=== PATIENT | female | born 1990 | race Two or more races ===

== ENCOUNTER 2024-04-18 06:59 | Emergency (ER) | payer MEDICAID, SELFPAY ==
[2024-04-18 06:59] VITALS: BMI 29.2
[2024-04-18 07:07] VITALS: BP 128/80; PULSE 69; RESP 19; TEMP 36.6; O2SAT 100
--- NOTE | 2024-04-18 07:08 | XR_ITS ---
Examination: Lumbar spine 3 views Technique one AP lateral coned lateral lower lumbar spine 3 views Exam date and time: April 18, 2024 0838 hrs. Indications: Lifting injury to lower back today, neck pain Findings: Adequate alignment lumbar vertebral bodies Transitional L5 vertebral body No spondylolisthesis No cortical bone destruction Impression: No lumbar fracture
--- NOTE | 2024-04-18 07:09 | PD.EDBACK ---
ED Back Injury Pain RME/HPI General Chief Complaint: Back Pain/Injury Stated Complaint: lower back pain Time Seen by Provider: 04/18/24 07:07 Source: patient Arrival date/time: 04/18/24 06:59 33-year-old female with no known medical history presents to the emergency room with a chief complaint of lower back pain x 1 day. Patient states she was in the gym and she was squatting and felt a popping sound to her lower back. Mode of arrival: ambulatory Limitations: no limitations Related Data Home Medications ?Medication ?Instructions ?Recorded ?Confirmed sertraline 50 mg tablet 50 mg PO DAILY 03/26/21 05/21/21 Previous Rx's ?Medication ?Instructions ?Recorded ibuprofen 800 mg tablet 800 mg PO TID PRN pain #30 tabs 01/10/22 ibuprofen 600 mg tablet 600 mg PO Q8H PRN fever or pain 04/18/24 #20 tabs Allergies Allergy/AdvReac Type Severity Reaction Status Date / Time No Known Allergies Allergy Verified 05/22/21 09:51 Review of Systems Review of Systems Systems Reviewed: All systems reviewed, normal except as documented Constitutional Constitutional: Reports system reviewed and no additional complaints, except as documented, Denies fatigue, Denies fever(s), Denies headache(s) and Denies weakness Eyes Eyes: Reports system reviewed and no additional complaints, except as documented, Denies blurry vision and Denies change in vision ENT Ears, Nose, Mouth, and Throat: Reports system reviewed and no additional complaints, except as documented, Denies otalgia, Denies headache(s), Denies nasal congestion, Denies throat swelling and Denies vertigo Cardiovascular Cardiovascular: Reports system reviewed and no additional complaints, except as documented, Denies chest pain, Denies dyspnea and Denies dyspnea on exertion Respiratory Respiratory: Reports system reviewed and no additional complaints, except as documented, Denies chest congestion, Denies cough, Denies dyspnea, Denies dyspnea on exertion and Denies wheezing Gastrointestinal Gastrointestinal: Reports system reviewed and no additional complaints, except as documented, Denies abdominal pain, Denies cramping, Denies nausea and Denies vomiting Genitourinary Genitourinary: Reports system reviewed and no additional complaints, except as documented Musculoskeletal Musculoskeletal: Reports system reviewed and no additional complaints, except as documented, Reports arthralgias and Reports back pain Integumentary/Breasts Skin/Breast: Reports system reviewed and no additional complaints, except as documented and Denies wounds Neurologic Neurologic: Reports system reviewed and no additional complaints, except as documented, Denies confusion, Denies headache(s), Denies lack of coordination, Denies vertigo and Denies weakness Psychiatric Psychiatric: Reports system reviewed and no additional complaints, except as documented, Denies anxiety, Denies confusion, Denies depression, Denies paranoia, Denies suicidal ideation and Denies tactile hallucinations Endocrine Endocrine: Reports system reviewed and no additional complaints, except as documented and Denies fatigue Hematologic/Lymphatic Hematologic/Lymphatic: Reports system reviewed and no additional complaints, except as documented and Denies lymphadenopathy Allergic/Immunologic Allergic/Immunologic: Reports system reviewed and no additional complaints, except as documented, Denies throat swelling, Denies urticaria and Denies wheezing Past Medical History Past Medical History NEUROLOGIC: Negative Neurological Disorders or Seizures CARDIAC: Negative Cardiac Disorders, Congestive Heart Failure, Edema or Varicose Veins RESPIRATORY: Negative Chronic Obstructive Pulmonary Disease (COPD), Tuberculosis or Pulmonary Embolism GASTROINTESTINAL: Negative Gastrointestinal Disorders, Hepatitis or Colorectal Cancer GENITOURINARY: Negative Genitourinary Disorders, Renal Disease or Prostate Cancer REPRODUCTIVE: Positive Previous Pregnancies (X3); Negative Breast Cancer, Pelvic Inflammatory Disease or Testicular Cancer MUSCULOSKELETAL: Negative Musculoskeletal Disorders or Bone Cancer ENDOCRINE: Positive Endocrine Disorders; Negative Diabetes Mellitus Type 1 or Diabetes Mellitus Type 2 HEMATOLOGIC: Negative Blood Disorders PSYCHO/SOCIAL: Positive Depression (TAKES MED), Anxiety and Depression OTHER HISTORY: Positive Chicken Pox; Negative Hospitalization, Autoimmune Disease, Shingles, Falls, Blood Transfusions, Blood Transfusion Reaction, Anesthesia Reactions, Chemotherapy, Radiation Therapy, MRSA, VRSA, Vancomycin-Resistant Enterococci, Human Immunodeficiency Virus (HIV), Measles, Mumps, Rubella ([place] Measles), Pertussis, Clostridium Difficile, Cancer, Breast Cancer, Cervical Cancer, Colorectal Cancer, Lung Cancer, Ovarian Cancer, Prostate Cancer or Testicular Cancer Family History FAMILY HISTORY: Positive Family Psychiatric Problems (MOTHER (DEPRESSION)); Negative Family Respiratory Disorders, Family Cardiac Disorders, Family Gastrointestinal Problems, Family Cancer, Family Surgery or Family Anesthesia Reaction Surgical History SURGICAL: Negative Endocrine Surgery, Ear Surgery, Abdominal Surgery, Nephrectomy, Joint Replacement, Neurologic Surgery or Section Social History SMOKING STATUS: Never smoker ED Exam General Limitations: Present no limitations General appearance: Present alert and in no apparent distress Head Head exam: Present atraumatic Eye Eye exam: Present normal appearance, PERRL and EOMI ENT ENT exam: Present normal exam, normal oropharynx and mucous membranes moist Neck Neck exam: Present normal inspection, full ROM and trachea midline Chest Chest inspection: Present normal inspection and symmetric chest wall rise Respiratory Respiratory exam: Present normal lung sounds bilaterally Cardiovascular Cardiovascular exam: Present regular rate, normal rhythm and normal heart sounds Abdominal Exam Abdominal exam: Present soft and normal bowel sounds Extremities Exam Extremities exam: Present normal inspection and full ROM Back Exam Back exam: Present normal inspection, full ROM, tenderness and vertebral tenderness Neurological Exam Neurological exam: Present alert, oriented X3 and CN II-XII intact Psychiatric Psychiatric exam: Present normal affect and normal mood Skin Skin exam: Present warm, dry, intact and normal color Course Quality Measures none Orders Category Date Time Status XR lumbar spine 2-3V Stat Exams 04/18/24 07:08 Completed HCG Qualitative,Urine Stat Lab 04/18/24 07:30 Completed Ketorolac Inj [Toradol Inj] Med 04/18/24 07:08 Discontinued 30 mg IM X1 ONE Vital Signs Vital signs: Vital Signs Temperature 97.8 F 04/18/24 07:07 Pulse Rate 69 04/18/24 07:07 Respiratory Rate 19 04/18/24 07:07 Blood Pressure 128/80 04/18/24 07:07 Pulse Oximetry (%) 100 04/18/24 07:07 Oxygen Delivery Method Room Air 04/18/24 07:07 O2 saturation 100% within normal limits Back Pain / Injury MDM Narrative MDM Narrative:: 33-year-old female with no known medical history presents to the emergency room with a chief complaint of lower back pain x 1 day. Patient states she was in the gym and she was squatting and felt a popping sound to her lower back. Patient is hemodynamically stable and in no apparent distress Physical examination shows tenderness with palpation to the lumbar area of her spine. The patient denies any numbness to the lower extremities, saddle anesthesia, or any tingling. X-ray was completed and was negative for any acute fracture or dislocation Patient was discharged and educated to follow-up with primary care provider and return to the emergency room for any evidence of worsening signs or symptoms Patient data External records reviewed:: [facility] previous records Clinical information provided by:: patient Social determinants that could affect healthcare access:: none Patient has the following chronic illnesses:: No chronic illness How is presenting disease/condition affected by chronic disease/condition?: no chronic disease Evaluation data The following diagnostics were reviewed and interpreted by me:: lab results and radiology exam(s) Lab and/or radiology exams considered but not ordered:: Labs and radiology exams considered and ordered Interpretation Summary: Lumbar [id number]: Adequate alignment lumbar vertebral bodies Transitional L5 vertebral body No spondylolisthesis No cortical bone destruction Impression: No lumbar fracture Medications / Prescriptions Medications or Prescriptions considered but not ordered:: Medication given Medication administrations:: Medication Administration History Discontinued Medications Ketorolac Tromethamine (Ketorolac Inj 60 Mg/2 Ml Vial) 30 mg IM X1 ONE Stop: 04/18/24 07:09 Last Admin: 04/18/24 07:15 Dose: 30 mg Documented By: DB Medication given Consultations Consultation(s) initiated? (list below): No Diagnosis Differential diagnosis back pain/injury: lumbar radiculopathy, sciatica, strain of lumbar region and discitis Most likely diagnosis given after review of the tests above:: Strain of lumbar region Admission Indicated Admission indicated?: not indicated Admission Request Was there a request for admission?: No Disposition Plan Disposition Plan: Discharge Discharge Attestation Discharge Attestation: The patient and all family members were given an opportunity to ask questions and understood the discharge instructions. Discharge instructions specifically effects, indications for sooner follow up or return to the emergency department, and the expected course of current diagnosis. Patient condition: Stable Discharge Plan Plan Patient Disposition: HOME (Self Care) Disposition Comment: Stable Prescriptions/Referrals Prescriptions/Med Rec: New ibuprofen 600 mg tablet 600 mg PO Q8H PRN (Reason: fever or pain) Qty: 20 0RF No Action sertraline 50 mg tablet 50 mg PO DAILY Patient Comments: take 1 tablet by mouth once daily ibuprofen 800 mg tablet 800 mg PO TID PRN (Reason: pain) Qty: 30 0RF Referrals: Abdon Bridges MD [Primary Care Provider] - In 1 week Problem List Clinical Impression: Lumbar back sprain Patient/Caregiver Discharge Instructions Education Materials: ED Back Sprain/Strain Additional Instructions: Please follow-up with your primary care provider in the next 24 to 48 hours. X-ray of the lumbar spine was completed and was negative for any acute fracture or dislocation For any evidence of worsening signs or symptoms return to the emergency room immediately Print Language: Turkish Stand Alone Forms: Ashley Award Info., Patient Portal Info Letter PA/CIGARETTE TIPPER Supervising Physician PA/CIGARETTE TIPPER Supervising Physician: Dr Hoff
[2024-04-18] MEDS: KETOROLAC INJ 60 MG/2 ML VIAL 30 MG IM (07:15)
[2024-04-18 08:04] LABS: HCG Qualitative,Urine Negative
== END 2024-04-18 09:18 | disposition home or self-care (01) ==
PROVIDERS: Nurse Practitioner Family; Emergency Provider Emergency Medicine; PCP Family Medicine
DX: S33.5XXA Sprain of ligaments of lumbar spine, initial encounter (principal); W19.XXXA Unspecified fall, initial encounter; X58.XXXA Exposure to other specified factors, initial encounter; Y93.B9 Activity, other involving muscle strengthening exercises; Y92.39 Other specified sports and athletic area as the place of occurrence of the external cause
CPT/HCPCS: 72100; 81025; 96372; 99283; J1885

== ENCOUNTER 2024-12-24 02:48 | Emergency (ER) | payer MEDICAID, SELFPAY ==
[2024-12-24 02:49] VITALS: BMI 27.4
[2024-12-24 02:51] VITALS: BP 136/87; PULSE 87; RESP 19; TEMP 37.1; O2SAT 97
--- NOTE | 2024-12-24 03:12 | XR_ITS ---
EXAMINATION: PA lateral chest 2 views TECHNIQUE: Upright PA and lateral chest 2 views Date and time: December 24, 2024, 0320 hours INDICATIONS: Coughing attacks beginning 10 days ago, chest pain beginning 3 hours ago FINDINGS: Normal heart size Lungs are clear. The osseous structures are intact. IMPRESSION: No active disease
--- NOTE | 2024-12-24 03:15 | EDNOTE_ITS ---
Upper Respiratory Inf. RME/HPI General Chief Complaint: Flu Like Symptoms Stated Complaint: COUGH L EAR PAIN ANC CHEST PAIN Time Seen by Provider: 12/24/24 03:08 Arrival date/time: 12/24/24 02:48 34F with history of psych presents to ED with 1.5 weeks of cough and some CP, ear pain, and sore throat. Limitations: no limitations Related Data Home Medications ?Medication ?Instructions ?Recorded ?Confirmed sertraline 50 mg tablet 50 mg PO DAILY 03/26/2105/02 Previous Rx's ?Medication ?Instructions ?Recorded ibuprofen 800 mg tablet 800 mg PO TID PRN pain #30 t abs 01/10/22 ibuprofen 600 mg tablet 600 mg PO Q8H PRN fever or p ain 04/18/24 #20 tabs azithromycin 250 mg tablet See Rx Instructions PO .COM PLEX #6 12/24/24 tabs Allergies Allergy/AdvReac Type Severity Reaction Status Date / Time No Known Allergies Allergy Verified 12/24/24 02:52 Review of Systems Review of Systems Systems Reviewed: All systems reviewed, normal except as documented ENT Ears, Nose, Mouth, and Throat: Reports as per HPI, Reports otalgia and Reports sore throat Cardiovascular Cardiovascular: Reports as per HPI and Reports chest pain Respiratory Respiratory: Reports as per HPI and Reports cough Past Medical History Past Medical History NEUROLOGIC: Negative Neurological Disorders or Seizures CARDIAC: Negative Cardiac Disorders, Congestive Heart Failure, Edema or Varicose Veins RESPIRATORY: Negative Chronic Obstructive Pulmonary Disease (COPD), Tuberculosis or Pulmonary Embolism GASTROINTESTINAL: Negative Gastrointestinal Disorders, Hepatitis or Colorectal Cancer GENITOURINARY: Negative Genitourinary Disorders, Renal Disease or Prostate Cancer REPRODUCTIVE: Positive Previous Pregnancies (X3); Negative Breast Cancer, Pelvic Inflammatory Disease or Testicular Cancer MUSCULOSKELETAL: Negative Musculoskeletal Disorders or Bone Cancer ENDOCRINE: Positive Endocrine Disorders; Negative Diabetes Mellitus Type 1 or Diabetes Mellitus Type 2 HEMATOLOGIC: Negative Blood Disorders PSYCHO/SOCIAL: Positive Depression (TAKES MED), Anxiety and Depression OTHER HISTORY: Positive Chicken Pox; Negative Hospitalization, Autoimmune Disease, Shingles, Falls, Blood Transfusions, Blood Transfusion Reaction, Anesthesia Reactions, Chemotherapy, Radiation Therapy, MRSA, VRSA, Vancomycin-Resistant Enterococci, Human Immunodeficiency Virus (HIV), Measles, Mumps, Rubella (Vietnamese Measles), Pertussis, Clostridium Difficile, Cancer, Breast Cancer, Cervical Cancer, C olorectal Cancer, Lung Cancer, Ovarian Cancer, Prostate Cancer or Testicular Cancer Family History FAMILY HISTORY: Positive Family Psychiatric Problems (MOTHER (DEPRESSION)); Negative Family Respiratory Disorders, Family Cardiac Disorders, Family Gastrointestinal Problems, Family Cancer, Family Surgery or Family Anesthesia Reaction Surgical History SURGICAL: Negative Endocrine Surgery, Ear Surgery, Abdominal Surgery, Nephrectomy, Joint Replacement, Neurologic Surgery or Section Social History SMOKING STATUS: Never smoker ED Exam General Limitations: Present no limitations General appearance: Present alert and in no apparent distress Head Head exam: Present atraumatic ENT ENT exam: Present normal exam, normal oropharynx and mucous membranes moist Neck Neck exam: Present normal inspection, full ROM and trachea midline Chest Chest inspection: Present normal inspection and symmetric chest wall rise Respiratory Respiratory exam: Present normal lung sounds bilaterally Neurological Exam Neurological exam: Present alert and oriented X3 Psychiatric Psychiatric exam: Present normal affect and normal mood Skin Skin exam: Present warm, dry, intact and normal color Course Quality Measures none Orders Category Date Time Status Bedside COVID-19 Antigen Test NOW Care 12/24/24 02:51 Active XR chest 2V Stat Exams 12/24/24 03:12 Taken Vital Signs Vital signs: Vital Signs Temperature 98.8 F 12/24/24 02:51 Pulse Rate 87 12/24/24 02:51 Respiratory Rate 19 12/24/24 02:51 Blood Pressure 136/87 H 12/24/24 02:51 Pulse Oximetry (%) 97 12/24/24 02:51 Oxygen Delivery Method Room Air 12/24/24 02:51 O2 at 97% on RA and WNLs Upper Respiratory Infection MDM Narrative MDM Narrative:: 34F with history of psych presents to ED with 1.5 weeks of cough and some CP, ear pain, and sore throat. Physical exam reveals clear ENT and lungs. Normal WOB. Patient is afebrile, calm, and alert. Swabs neg. Telerad CXR unremarkable. Will give short course of ABX given duration of cough. Patient data External records reviewed:: [facility] previous records Clinical information provided by:: patient Social determinants that could affect healthcare access:: none Patient has the following chronic illnesses:: none How is presenting disease/condition affected by chronic disease/condition?: no chronic disease Evaluation data The following diagnostics were reviewed and interpreted by me:: lab results and radiology exam(s) Lab and/or radiology exams considered but not ordered:: ordered Interpretation Summary: above Medications / Prescriptions Medications or Prescriptions considered but not ordered:: not ordered Medication administrations:: n/a Consultations Consultation(s) initiated? (list below): No Diagnosis Upper Respiratory Differential Diagnosis: upper respiratory infection, croup, otitis media, sinusitis, viral infection, bronchitis, influenza, pharyngitis and other (CAP) Most likely diagnosis given after review of the tests above:: CAP Admission Indicated Admission indicated?: not indicated Admission Request Was there a request for admission?: No Disposition Plan Disposition Plan: Discharge Discharge Attestation Discharge Attestation: The patient and all family members were given an opportunity to ask questions and understood the discharge instructions. Discharge instructions specifically effects, indications for sooner follow up or return to the emergency department, and the expected course of current diagnosis. Patient condition: Stable Discharge Plan Plan Patient Disposition: HOME (Self Care) Discharge Disposition comment: Stable Prescriptions/Referrals Prescriptions/Med Rec: New azithromycin 250 mg tablet See Rx Instructions .ROUTE .COMPLEX Qty: 6 0RF Rx Instructions: For 250 mg dose pack: take 500 mg today (day 1), then 250 mg for 4 days (days 2-5) No Action sertraline 50 mg tablet 50 mg PO DAILY Patient Comments: take 1 tablet by mouth once daily ibuprofen 600 mg tablet 600 mg PO Q8H PRN (Reason: fever or pain) Qty: 20 0RF ibuprofen 800 mg tablet 800 mg PO TID PRN (Reason: pain) Qty: 30 0RF Referrals: No Primary/Family,Physician [Primary Care Provider] - In 1 week Problem List Clinical Impression: Respiratory infection Patient/Caregiver Discharge Instructions Education Materials: ED Pneumonia (Adult) Additional Instructions: Please follow-up with PCP within 24-48 hours and return immediately if symptoms worsen. Ibuprofen/Tylenol can be used simultaneously for greater fever/pain control. Benadryl is good for cough, congestion, and sleep. Keep hydrated. Advance diet as tolerated. Print Language: Salvadorean Stand Alone Forms: Patient Portal Info Letter GLADIS/ELBERT Supervising Physician GLADIS/ELBERT Supervising Physician: Dr. Kincaid
--- NOTE | 2024-12-24 04:11 | PRELIM_ITS ---
Radiographs of the chest (2 views). December 24, 2024 0315 hours Clinical history: Cough 1.5 weeks Comparison: No prior study is available for comparison. Findings: The heart, mediastinum and pulmonary bailee are unremarkable. The lungs are clear. There is no pleural effusion. The bony thorax is unremarkable. Impression: No focal consolidation or pleural effusion. Report Electronically Signed By: Nneka Quiñonez 12/24/2024 4:10:49 AM [EST]
== END 2024-12-24 04:50 | disposition home or self-care (01) ==
PROVIDERS: Emergency Provider Emergency Medicine
DX: J18.9 Pneumonia, unspecified organism (principal)
CPT/HCPCS: 71046; 87811; 99281

== ENCOUNTER 2025-01-21 13:31 | Emergency (ER) | payer MEDICAID, SELFPAY ==
--- NOTE | 2025-01-21 13:49 | EDNOTE_ITS ---
ED Back Injury Pain RME/HPI General Chief Complaint: Back Pain/Injury Stated Complaint: LOWER BACK PAIN X 11 DAYS Time Seen by Provider: 01/21/25 13:42 Arrival date/time: 01/21/25 13:31 RME / HPI RME / HPI Narrative: 34 year old female with no stated medical history presents to the ED for evaluation of right lower back pain that radiates down the right thigh today. Reports the back pain began after she unloaded a shipment at an [employer] warehouse on 01/10/2025. States the following day after shipment, noted her right lower back to feel sore that has worsened since onset. States she had consulted with workers comp doctors who performed an XR this morning showing no acute findings. States the pain persists and minimally improved with 800mg once daily and heat packs. Denies any loss of sensation or movement. No other associated symptoms. No change in bladder or bowel habits. No saddle numbness. Related Data Home Medications ?Medication ?Instructions ?Recorded ?Confirmed sertraline 50 mg tablet 50 mg PO DAILY 03/26/21/03/24 Previous Rx's ?Medication ?Instructions ?Recorded ibuprofen 800 mg tablet 800 mg PO TID PRN pain #30 t abs 01/10/22 ibuprofen 600 mg tablet 600 mg PO Q8H PRN fever or p ain 04/18/24 #20 tabs azithromycin 250 mg tablet See Rx Instructions PO .COM PLEX #6 12/24/24 tabs lidocaine 5 % topical patch 1 patch topical QDAY PRN p ain #15 01/21/25 ea Allergies Allergy/AdvReac Type Severity Reaction Status Date / Time No Known Allergies Allergy Verified 01/21/25 13:34 Review of Systems Review of Systems Systems Reviewed: All systems reviewed, normal except as documented Past Medical History Past Medical History REPRODUCTIVE: Positive Previous Pregnancies (X3) ENDOCRINE: Positive Endocrine Disorders PSYCHO/SOCIAL: Positive Depression (TAKES MED), Anxiety and Depression OTHER HISTORY: Positive Chicken Pox Family History FAMILY HISTORY: Positive Family Psychiatric Problems (MOTHER (DEPRESSION)) Social History SMOKING STATUS: Never smoker ED Exam Narrative Physical exam: Constitutional: Awake, alert, nontoxic, no acute distress HEENT: Normocephalic, atraumatic, extraocular movements intact. Neck: Supple Extremities: No deformities, no edema noted Back: tenderness to the right lower lateral back, no midline tenderness, straight leg neg Neuro: AAOx3, CN 2-12 GIBL, sensation and movement intact in the lower extremity Skin: Warm, dry, intact Course Quality Measures none Vital Signs Vital signs: Vital Signs Temperature 98.2 F 01/21/25 14:07 Pulse Rate 81 01/21/25 14:07 Respiratory Rate 19 01/21/25 14:07 Blood Pressure 124/86 H 01/21/25 14:07 Pulse Oximetry (%) 98 01/21/25 14:07 Oxygen Delivery Method Room Air 01/21/25 14:07 Pulse ox is 98% on room air which is adequate. Back Pain / Injury MDM Narrative MDM Narrative:: Sue Pinto am scribing for and in the presence of Dr. Vann. Patient data External records reviewed:: [facility] previous records Clinical information provided by:: patient Social determinants that could affect healthcare access:: none Patient has the following chronic illnesses:: None How is presenting disease/condition affected by chronic disease/condition?: no chronic disease Evaluation data The following diagnostics were reviewed and interpreted by me:: other (specify) (No diagnostics ordered ) Lab and/or radiology exams considered but not ordered:: None Interpretation Summary: N/A Medications / Prescriptions Medications or Prescriptions considered but not ordered:: None Medication administrations:: None Consultations Consultation(s) initiated? (list below): No Diagnosis Differential diagnosis back pain/injury: lumbar radiculopathy, sciatica and strain of lumbar region Most likely diagnosis given after review of the tests above:: Back strain Admission Indicated Admission indicated?: not indicated Explain why admission is indicated or not indicated:: With no condition needing emergent intervention, there was no indication for admission. Admission Request Was there a request for admission?: No Disposition Plan Disposition Plan: Discharge Discharge Attestation Discharge Attestation: The patient and all family members were given an opportunity to ask questions and understood the discharge instructions. Discharge instructions specifically effects, indications for sooner follow up or return to the emergency department, and the expected course of current diagnosis. Patient condition: Stable Discharge Plan Plan Patient Disposition: HOME (Self Care) Patient condition on transfer: Stable Prescriptions/Referrals Prescriptions/Med Rec: New lidocaine 5 % adhesive patch,medicated 1 patch topical QDAY PRN (Reason: pain) Qty: 15 0RF Rx Instructions: leave on most painful area for up to 12 hrs No Action sertraline 50 mg tablet 50 mg PO DAILY Patient Comments: take 1 tablet by mouth once daily ibuprofen 600 mg tablet 600 mg PO Q8H PRN (Reason: fever or pain) Qty: 20 0RF ibuprofen 800 mg tablet 800 mg PO TID PRN (Reason: pain) Qty: 30 0RF azithromycin 250 mg tablet See Rx Instructions .ROUTE .COMPLEX Qty: 6 0RF Rx Instructions: For 250 mg dose pack: take 500 mg today (day 1), then 250 mg for 4 days (days 2-5) Problem List Clinical Impression: Back strain Patient/Caregiver Discharge Instructions Education Materials: Treating?Strains and Sprains, Lumbar Extension (Flexibility), Lumbar Flexion (Flexibility), Lumbar Stretch (Flexibility), ED Back Sprain/Strain Print Language: Vietnamese Stand Alone Forms: Ashley Award Info., Work/School Release, Patient Portal Info Letter
[2025-01-21 14:07] VITALS: BP 124/86; PULSE 81; RESP 19; TEMP 36.8; O2SAT 98
== END 2025-01-21 15:00 | disposition home or self-care (01) ==
PROVIDERS: Emergency Provider Family Medicine
DX: S39.012A Strain of muscle, fascia and tendon of lower back, initial encounter (principal); X50.0XXA Overexertion from strenuous movement or load, initial encounter; Y93.89 Activity, other specified
CPT/HCPCS: 99281